=== PATIENT | male | born 1990 | race Caucasian/White ===

== ENCOUNTER 2016-10-01 19:19 | Emergency (ER) | payer OTHER ==
[2016-10-01 19:28] VITALS: BP 118/80
[2016-10-01] MEDS ORDERED: Cephalexin CAP* 500 MG PO ONE (20:14)
--- NOTE | 2016-10-01 20:31 | ED ---
Skin Complaint - HPI Summary HPI Summary: PATIENT PRESENTS TO ED WITH CC OF FOURTH TOE PAIN, SWELLING AND REDNESS ON RIGHT FOOT 2 DAYS. HE NOTES TO TENDERNESS OVER THE TOE BUT IS ABLE TO FLEX AND EXTEND THE DIGIT. DENIES OTHER PAIN, SWELLING OR INFLAMMATION IN OTHER TOES OR OR FOOT. DENIES INJURY OR KNOWN BUG BITE. OTHERWISE HEALTHY AND NON-DIABETIC. DENIES DRUG USE. - History of Current Complaint Chief Complaint: EDRashSkinAbscess Time Seen by Provider: 10/01/16 19:46 Stated Complaint: RT TOE INFLAMMATION Hx Obtained From: Patient Onset/Duration: Started Hours Ago Timing: Constant Onset Severity: Moderate Current Severity: Moderate Pain Intensity: 8 Pain Scale Used: 0-10 Numeric Skin Location: Foot Character: Swelling, Pain, Redness Aggravating Symptom(s): Touch Alleviating Symptom(s): Unknown Associated Signs & Symptoms: Red Streaks, Joint Swelling - Allergy/Home Medications Allergies/Adverse Reactions: Allergies Allergy/AdvReac Type Severity Reaction Status Date / Time No Known Allergies Allergy Verified 10/01/16 19:28 PMH/Surg Hx/FS Hx/Imm Hx Previously Healthy: Yes - Immunization History Hx Pertussis Vaccination: No Immunizations Up to Date: Unable to Obtain/Confirm Infectious Disease History: No Infectious Disease History: Denies: Traveled Outside the [place] in Last 30 Days - Social History Occupation: Employed Full-time Lives: With Family Hx Substance Use: No Substance Use Type: Reports: None Hx Tobacco Use: No Smoking Status (MU): Never Smoked Tobacco Do You Chew or Dip Tobacco: No Review of Systems Constitutional: Negative Eyes: Negative Cardiovascular: Negative Respiratory: Negative Positive: Arthralgia, Myalgia Positive: Other - ERYTHEMA, SWELLING, WARMTH AND TENDERNESS Neurological: Negative Psychological: Normal All Other Systems Reviewed And Are Negative: Yes Physical Exam Triage Information Reviewed: Yes Vital Signs On Initial Exam: Initial Vitals Temp Pulse Resp BP Pulse Ox 98.6 F 93 16 118/80 99 10/01/16 19:24 10/01/16 19:24 10/01/16 19:24 10/01/16 19:24 10/01/16 19:24 Vital Signs Reviewed: Yes Appearance: Positive: Well-Appearing, Well-Nourished Skin: Positive: Warm, Skin Color Reflects Adequate Perfusion, Other - ERYTHEMA, SWELLING, WARMTH AND TENDERNESS Head/Face: Positive: Normal Head/Face Inspection Eyes: Positive: EOMI, NIRANJAN, Conjunctiva Clear Neck: Positive: Supple, Nontender, No Lymphadenopathy Respiratory/Lung Sounds: Positive: Clear to Auscultation, Breath Sounds Present Cardiovascular: Positive: Normal, RRR Musculoskeletal: Positive: Pain @ - FLEXION AND EXTENSION AND PALPATION OF FOURTH RIGHT TOE Neurological: Positive: Sensory/Motor Intact, Speech Normal Psychiatric: Positive: Normal Diagnostics - Vital Signs Vital Signs Temp Pulse Resp BP Pulse Ox 10/01/16 19:29 98.6 F 93 16 118/80 99 10/01/16 19:24 98.6 F 93 16 118/80 99 - Laboratory Lab Statement: Any lab studies that have been ordered have been reviewed, and results considered in the medical decision making process. Course/Dx - Differential Diagnoses - Skin Complaint Differential Diagnoses: Abscess, Cellulitis, Contact Dermatitis, Lymphangitis - Diagnoses Provider Diagnoses: Cellulitis, toe Discharge - Discharge Plan Condition: Stable Disposition: HOME Prescriptions: Cephalexin CAP* [Keflex CAP*] 500 mg PO QID #28 cap Patient Education Materials: Cellulitis (ED) Referrals: Chana SELF,Yovany Canada [Primary Care Provider] - Additional Instructions: FOLLOW UP WITH PCP NEEDED IF YOU DEVELOP ANY WORSENING REDNESS, WARMTH, RED STREAKING UP THE LEG OR YOU DEVELOP A FEVER, RETURN TO ED IMMEDIATELY.
== END 2016-10-01 20:30 | disposition home or self-care (01) ==
LOC: ED 19:19
DX: L03.031 Cellulitis of right toe (principal)
CPT/HCPCS: 99282; A9270-GY

== ENCOUNTER 2016-10-02 22:14 | Emergency (ER) | payer OTHER ==
[2016-10-03 01:34] VITALS: BP 116/77
--- NOTE | 2016-10-03 03:18 | ED ---
Tenisha Zimmer Claudia, scribed for Juan Murguia MD on 10/03/16 at 0313 . Skin Complaint - HPI Summary HPI Summary: 26 year old male presents to the ED with 4th digit swelling and redness to the right foot. Pt notes the Sx have been gradual over the past week. The pt was at [facility] for the same chief complaint and was Dx with Cellulitis and given Cipro. Pt returns today because the Sx have worsened. Pt notes pain 8/10 on the pain scale. Pt denies any aggravating or alleviating factors including the antibiotics. Pt denies NVD - History of Current Complaint Chief Complaint: EDGeneral Time Seen by Provider: 10/03/16 03:05 Stated Complaint: CELLULITIS ON RIGHT FOOT Hx Obtained From: Patient, Family/Senior Ux Developer Onset/Duration: Started Days Ago, Worse Since - Today Timing: Constant Pain Intensity: 8 Pain Scale Used: 0-10 Numeric Skin Location: Foot - right Aggravating Symptom(s): Nothing Alleviating Symptom(s): Nothing - Allergy/Home Medications Allergies/Adverse Reactions: Allergies Allergy/AdvReac Type Severity Reaction Status Date / Time No Known Allergies Allergy Verified 10/01/16 19:28 PMH/Surg Hx/FS Hx/Imm Hx Previously Healthy: Yes Endocrine/Hematology History: Denies: Hx Diabetes Cardiovascular History: Denies: Hx Myocardial Infarction Infectious Disease History: No Infectious Disease History: Denies: Traveled Outside the [place] in Last 30 Days - Family History Known Family History: Negative: Cardiac Disease, Hypertension, Diabetes - Social History Occupation: Disabled Lives: With Family Alcohol Use: Occasionally Hx Substance Use: No Substance Use Type: Reports: None Hx Tobacco Use: No Smoking Status (MU): Never Smoked Tobacco Review of Systems Constitutional: Negative Eyes: Negative ENT: Negative Cardiovascular: Negative Respiratory: Negative Gastrointestinal: Negative Negative: Vomiting, Diarrhea, Nausea Genitourinary: Negative Musculoskeletal: Negative Positive: Other - RED, EDEMATOUS CHARACTER TO HIS RIGHT FOOT Neurological: Negative Psychological: Normal All Other Systems Reviewed And Are Negative: Yes Physical Exam Triage Information Reviewed: Yes Vital Signs On Initial Exam: Initial Vitals Temp Pulse Resp BP Pulse Ox 99.2 F 86 18 114/74 99 10/02/16 22:20 10/02/16 22:20 10/02/16 22:20 10/02/16 22:20 10/02/16 22:20 Vital Signs Reviewed: Yes Appearance: Positive: Well-Appearing, No Pain Distress Skin: Positive: Warm Head/Face: Positive: Normal Head/Face Inspection Eyes: Positive: NIRANJAN ENT: Positive: Hearing grossly normal Neck: Positive: Supple Respiratory/Lung Sounds: Positive: Clear to Auscultation, Breath Sounds Present Cardiovascular: Positive: RRR Musculoskeletal: Positive: Other - rt foot area of ecchymosis and tenderness 3, 4th digit Neurological: Positive: Alert, Oriented to Person Place, Time Diagnostics - Vital Signs Vital Signs Temp Pulse Resp BP Pulse Ox 10/03/16 01:27 99.1 F 67 16 116/77 99 10/02/16 23:45 99.3 F 84 16 107/65 98 10/02/16 22:20 99.2 F 86 18 114/74 99 - Laboratory Lab Statement: Any lab studies that have been ordered have been reviewed, and results considered in the medical decision making process. Re-Evaluation - Re-Evaluation First Eval Comment: pt left ed prior to completion of evaluation Course/Dx - Course Assessment/Plan: MDM: THE PT DECIDED TO LEAVE THE ED AFTER BEING EVALUATED. - Diagnoses Provider Diagnoses: Foot contusion Discharge - Discharge Plan Condition: Good Disposition: AGAINST MEDICAL ADVICE Referrals: Chana SELF,Yovany Canada [Primary Care Provider] - The documentation as recorded by the Tenisha metzger Claudia accurately reflects the service I personally performed and the decisions made by me, Juan Murguia MD.
== END 2016-10-03 03:20 | disposition left against medical advice (07) ==
LOC: ED 22:14
DX: S90.31XD Contusion of right foot, subsequent encounter (principal); L03.115 Cellulitis of right lower limb; X58.XXXD Exposure to other specified factors, subsequent encounter
CPT/HCPCS: 99282

== ENCOUNTER 2018-12-24 05:48 | Emergency (ER) | payer OTHER ==
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
[2018-12-24] MEDS ORDERED: NS 0.9% 1000 ML** 1,000 ML IV ONE (06:09)
[2018-12-24 06:39] LABS: ABS Basophils 0.1 10^3/ul (0-0.2); ABS Eosinophils 0.1 10^3/ul (0-0.6); ABS Lymphocytes 1.8 10^3/ul (1.0-4.8); ABS Monocytes 0.6 10^3/ul (0-0.8); ABS Neutrophils 2.7 10^3/ul (1.5-7.7); Eosinophil % 2.4 %; Hematocrit 45 % (42-52); Hemoglobin 15.5 g/dL (14.0-18.0); Lymphocyte % 33.7 %; Mean Corpuscular HGB Conc 35 g/dL (31-36); Mean Corpuscular Hemoglobin 31 pg (27-31); Mean Corpuscular Volume 91 fL (80-94); Mean Platelet Volume 7.8 fL (7.4-10.4); Nucleated Red Blood Cells % 0.1; Platelet Count 232 10^3/uL (150-450); Red Blood Count 4.94 10^6 /uL (4.18-5.48); Red Cell Distribution Width 13 % (10-15); White Blood Count 5.2 10^3/uL (3.5-10.8)
[2018-12-24 06:46] LABS: INR 1.01 (0.82-1.09)
[2018-12-24 07:00] LABS: ALT 15 U/L (7-52); AST 15 U/L (13-39); Albumin 4.4 g/dL (3.2-5.2); Alkaline Phosphatase 64 U/L (34-104); Anion Gap 4 mmol/L (2-11); BUN/Creatinine Ratio 12.9 (8-20); Blood Urea Nitrogen 11 mg/dL (6-24); CO2 Carbon Dioxide 28 mmol/L (22-32); Calcium 9.5 mg/dL (8.6-10.3); Chloride 107 mmol/L (101-111); EGFR African American 131.8 (>60); Globulin 2.2 g/dL (2-4); Glucose 93 mg/dL (70-100); Magnesium 2.1 mg/dL (1.9-2.7); Sodium 139 mmol/L (135-145); Total Protein 6.6 g/dL (6.4-8.9)
--- NOTE | 2018-12-24 07:41 | ED ---
Progress - Progress Note Progress Note: This patient is signed out from Dr. Lott upon shift change 12/24/18 07:00, awaiting results of labs and pending disposition. Course/Dx - Course Course Of Treatment: This patient was signed out to Dr. Lott at shift change. She reports that the patient is a 28-year-old male with history of TBI and seizures for which the patient takes Keppra. Apparently, the patient had a tonic-clonic seizure lasting approximately 15 minutes. Patient is awaiting blood work and further disposition. Blood test results without any significant abnormality. The patient took his morning medications for 500 mg of Keppra. At this point, I discussed my physical exam and findings with and Noni Srivastava , physician assistant teacher from Dr. [facility] Arriaga, and she requests for the patient to continue taking Keppra 500 mg twice a day and to follow-up with her office as soon as possible. At this point, I discussed all the findings and test results with the patient. He was instructed to return to the emergency room immediately if any of the symptoms return or worsen. Patient understands and agrees. Neurological exam before discharge: Patient is alert and oriented x 3. No acute neurological deficits. Patient's vital signs are stable. Patient is to follow up with his neurologist in 3 days. He understands and agrees. Plan of care was discussed with the patient and patient understands and agrees with the plan of care. All questions were answered at patient satisfaction. There were no further complaints or concerns. - Diagnoses Provider Diagnoses: Seizure - Provider Notifications Discussed Care Of Patient With: Chandana Shepherd Time Discussed With Above Provider: 09:09 Instructed by Provider To: Other - Dr. Shepherd, neurology, recommends consulting patient's neurologist at [place]. Spoke with Noni Vides, the neurology PA vocational rehabilitation consultant for [facility], at 09:33 who recommends keeping the patient on 500 mg Keppra BID and to follow up with their office. Discharge ED - Sign-Out/Discharge Documenting (check all that apply): Patient Departure - Discharge Patient Received Moderate/Deep Sedation with Procedure: No - Discharge Plan Condition: Stable Disposition: HOME Patient Education Materials: Recurrent Seizures in Adults (ED) Referrals: Orlando Elder [Nurse Practitioner] - 3 Days Additional Instructions: Follow up with your neurologist in 3 days. RETURN TO EMERGENCY DEPARTMENT FOR NEW OR WORSENING SYMPTOMS. - Billing Disposition and Condition Condition: STABLE Disposition: Home - Attestation Statements Document Initiated by Scribe: Yes Documenting Scribe: Kavita Dunn Provider For Whom Nadege is Documenting (Include Credential): Johny Kitchen MD Scribe Attestation: IKavita, scribed for Johny Kitchen MD on 12/24/18 at 1854. Scribe Documentation Reviewed: Yes Provider Attestation: The documentation as recorded by the abebaibKavita jo accurately reflects the service I personally performed and the decisions made by , Johny Kitchen MD Status of Scribe Document: Viewed
[2018-12-24 07:52] LABS: Alcohol < 10 mg/dL (<10)
[2018-12-24 08:06] LABS: TSH (Thyroid Stimulating Horm) 1.28 mcIU/mL (0.34-5.60)
[2018-12-24] MEDS ORDERED: levETIRAcetam TAB* 500 MG PO ONE (09:00)
[2018-12-24 09:03] LABS: Urine Appearance Clear; Urine Bilirubin Negative (Negative); Urine Blood Negative (Negative); Urine Color Yellow; Urine Glucose Negative (Negative); Urine Ketones Negative (Negative); Urine Nitrite Negative (Negative); Urine Protein Negative (Negative); Urine Specific Gravity 1.016 (1.010-1.030); Urine Urobilinogen Negative (Negative)
[2018-12-24 09:10] LABS: Urine Benzodiazepine Screen None Detected (None Detect); Urine Opiates Screen None Detected (None Detect)
[2018-12-24 09:40] VITALS: BP 110/64
== END 2018-12-24 09:50 | disposition home or self-care (01) ==
LOC: ED 05:48
DX: R56.9 Unspecified convulsions (principal); F17.200 Nicotine dependence, unspecified, uncomplicated; I44.2 Atrioventricular block, complete; Z87.820 Personal history of traumatic brain injury; Z79.899 Other long term (current) drug therapy
CPT/HCPCS: 36415; 80053; 80177; 80307; 80320; 81003; 83605; 83735; 84443; 85025; 85610; 93005; 96360; 96361; 99283; G0480